=== PATIENT | female | born 1965 | race Hispanic/Latino ===

== ENCOUNTER → 2019-09-11 | Outpatient (CLI) | payer BC | END | disposition home or self-care (01) | LOC: RAH 09:21 | PROVIDERS: ATTEND Obstetrics & Gynecology | DX: Z12.31 Encounter for screening mammogram for malignant neoplasm of breast (principal) | CPT/HCPCS: 77067 ==

== ENCOUNTER 2020-12-17 13:42 | Emergency (ER) | payer BC, OTHER ==
[2020-12-17] MEDS ORDERED: CYCLOBENZAPRINE HCL 10 MG TABLET ONE (14:29)
[2020-12-17] MEDS ORDERED: HYDROCODONE/ACETAMINOPHEN 10/325 MG TAB ONE (14:29)
== END 2020-12-17 15:15 | disposition home or self-care (01) ==
LOC: EDH 13:42
DX: S13.4XXA Sprain of ligaments of cervical spine, initial encounter (principal); S00.03XA Contusion of scalp, initial encounter; W20.8XXA Other cause of strike by thrown, projected or falling object, initial encounter; Y93.89 Activity, other specified; Y92.89 Other specified places as the place of occurrence of the external cause; Y99.8 Other external cause status
CPT/HCPCS: 70450; 72125

== ENCOUNTER 2021-01-17 06:07 | Day surgery (SDC) | payer BC, OTHER ==
[2021-01-16 09:05] VITALS: BP 132/70
[2021-01-17] VITALS (11 sets, daily range): BP systolic 114–144; BP diastolic 57–75
[~2021-01-17] VITALS: Ht 157.5 cm; Wt 112.6 kg
[~2021-01-17 06:07] MED LIST: FOLI-103 PO; NAPR-1023 PO; TIZA-194 PO
[2021-01-17] MEDS ORDERED: LACTATED RINGERS 1000ML 1,000 ML IV ONE (06:13)
[2021-01-17] MEDS ORDERED: CEFAZOLIN SODIUM 1 GM VIAL ONE (06:13)
[2021-01-17] MEDS ORDERED: MIDAZOLAM HCL 1 MG/ML 2ML VIAL ONE (06:35)
[2021-01-17] MEDS ORDERED: FENTANYL CITRATE PF 50 MCG/1 ML 2ML VIAL ONE ×2 (06:36→07:45)
[2021-01-17] MEDS ORDERED: LIDOCAINE HCL-MPF 0.5% 50ML VIAL IJ ONE (06:38)
[2021-01-17] MEDS: CEFAZOLIN SODIUM 1 GM VIAL IVP ONE ×2 (07:45→08:23)
== END 2021-01-17 09:20 | disposition home or self-care (01) ==
LOC: DAH 06:07
PROVIDERS: ATTEND Neurological Surgery
DX: G56.01 Carpal tunnel syndrome, right upper limb (principal); Z20.822 Contact with and (suspected) exposure to COVID-19; E66.9 Obesity, unspecified; Z79.899 Other long term (current) drug therapy
CPT/HCPCS: 64721; 87635; A4215; A4216; A4221; A4222; A4223 ×2; A4663; A6260; C9803; J0690; J2250; J3010 ×2; J3490; J7120

== ENCOUNTER → 2021-04-07 | Outpatient (CLI) | payer BC | END | disposition home or self-care (01) | LOC: RAH 11:13 | PROVIDERS: ATTEND Internal Medicine | DX: Z12.31 Encounter for screening mammogram for malignant neoplasm of breast (principal) | CPT/HCPCS: 77067 ==

== ENCOUNTER → 2022-10-24 | Outpatient (CLI) | payer BC | END | disposition home or self-care (01) | LOC: RAH 10:44 | PROVIDERS: ATTEND Obstetrics & Gynecology | DX: Z12.31 Encounter for screening mammogram for malignant neoplasm of breast (principal); N64.89 Other specified disorders of breast | CPT/HCPCS: 77067 ==

== ENCOUNTER 2023-03-23 01:42 | Emergency (ER) | payer BC ==
[~2023-03-23] VITALS: Ht 165.1 cm; Wt 114.3 kg
[2023-03-23 01:44] VITALS: BP 147/76; PULSE 73; RESP 16
[2023-03-23] MEDS ORDERED: HYDROCODONE/ACETAMINOPHEN 5/325 MG TAB PO ONE (02:30)
== END 2023-03-23 03:09 | disposition home or self-care (01) ==
LOC: EDH 01:42
DX: S52.592A Other fractures of lower end of left radius, initial encounter for closed fracture (principal); E78.00 Pure hypercholesterolemia, unspecified; Z90.89 Acquired absence of other organs; Z79.899 Other long term (current) drug therapy; Z98.890 Other specified postprocedural states; W18.39XA Other fall on same level, initial encounter; Y93.89 Activity, other specified; Y92.89 Other specified places as the place of occurrence of the external cause; Y99.8 Other external cause status
CPT/HCPCS: 29125; 73110; 73130

== ENCOUNTER 2024-08-20 08:21 | Inpatient (IN) | payer BC ==
[2024-08-14 15:11] LABS: BASOPHILS # (AUTO) 0.05 K/uL (0.00-0.20); BASOPHILS % (AUTO) 0.5 % (0.0-5.0); EOSINOPHILS # (AUTO) 0.04 K/uL (0.00-0.70); EOSINOPHILS % (AUTO) 0.4 % (0.0-8.0); IMMATURE GRANULOCYTE ABSOLUTE 0.03 K/uL (0-1); LYMPHOCYTES # (AUTO) 2.2 K/uL (1.0-4.8); MEAN CORPUSCULAR HEMOGLOBIN 30.1 pg (27.0-33.0); MEAN CORPUSCULAR HGB CONC 32.9 g/dL (32.0-36.0); MEAN CORPUSCULAR VOLUME 91.7 fL (79-99); MONOCYTES # (AUTO) 0.7 K/uL (0.1-1.0); MONOCYTES % (AUTO) 6.7 % (3.0-13.0); NEUTROPHILS # (AUTO) 7.6 K/uL (1.8-7.7); NEUTROPHILS % (AUTO) 71.1 % (40.0-77.0); PLATELET COUNT (AUTO) 346 K/uL (130-400); RED BLOOD CELL COUNT(AUTO) 4.58 MIL/uL (4.00-5.50); RED CELL DISTRIBUTION WIDTH 13.3 % (11.0-15.5); WHITE BLOOD COUNT (AUTO) 10.7 K/uL (4.8-10.8)
[2024-08-14 15:31] LABS: APPEARANCE,URINE CLEAR (CLEAR); BILIRUBIN,URINE NEGATIVE (NEGATIVE); COLOR,URINE LIGHT-YELLOW (YELLOW); GLUCOSE, URINE (UA) NEGATIVE (NEGATIVE); KETONES,URINE NEGATIVE (NEGATIVE); LEUKOCYTE ESTERASE ,URINE 25 Leu/uL (NEGATIVE); NITRATE,URINE NEGATIVE (NEGATIVE); OCCULT BLOOD,URINE NEGATIVE (NEGATIVE); PH,URINE 5.5 (5.0-8.0); PROTEIN,URINE 10 mg/dL (NEGATIVE); UROBILINOGEN,URINE 0.2 mg/dL (0.2-1.0)
[2024-08-14 15:33] VITALS: BP 139/75; PULSE 75; RESP 16; TEMP 97.5
[2024-08-14 15:35] LABS: ADD UA MICROSCOPIC YES
[2024-08-14 15:42] LABS: MUCUS,URINE RARE LPF (None Seen); SQUAMOUS EPITHELIAL CELL,UR RARE /HPF (0-2)
[~2024-08-20] VITALS: Ht 160 cm; Wt 121.4 kg
[2024-08-20] VITALS (25 sets, daily range): BP systolic 121–156; BP diastolic 49–82; PULSE 65–78; RESP 15–19; TEMP 97.2–98.1; O2SAT 96–98
[~2024-08-20 08:21] MED LIST changes: +ATOR40TA71 PO; -FOLI-103 PO; +IBUP-2077 PO; -NAPR-1023 PO; +[UNRECOGNIZED DRUG - MIXTURE] PO
[2024-08-20] MEDS: ceFAZolin SODIUM 2 GM VIAL ONE (09:53)
[2024-08-20] MEDS: LACTATED RINGERS 1000ML 1,000 ML IV ONE (09:53)
[2024-08-20] MEDS: VANCOMYCIN 500MG VIAL IJ SCH (12:00)
[2024-08-20] MEDS ORDERED: MIDAZOLAM HCL 1 MG/ML 2ML VIAL ONE (12:04)
[2024-08-20] MEDS ORDERED: VANCOMYCIN 1G/250ML KIT 250 ML IV ONE (12:13)
[2024-08-20] MEDS ORDERED: ceFAZolin SODIUM 1 GM VIAL ONE ×2 (12:14)
[2024-08-20] MEDS ORDERED: LIDOCAINE HCL-MPF 2% 10ML AMP IJ ONE (12:18)
[2024-08-20] MEDS ORDERED: FENTanyl CITRate PF 50 MCG/1 ML 2ML VIAL ONE (12:18)
[2024-08-20] MEDS ORDERED: rocuRONium bROMide 10MG/1ML 5ML VL ONE ×2 (12:18→13:30)
[2024-08-20] MEDS ORDERED: proPOFol 10 MG/ML 20ML VIAL IV ONE (12:18)
[2024-08-20] MEDS ORDERED: SUCCINYLCHOLINE CHLORIDE 20 MG/ML 10 ML VIAL ONE (12:18)
[2024-08-20] MEDS: ceFAZolin SODIUM 2 GM VIAL IVPB ONE (12:33)
[2024-08-20] MEDS: TRANEXAMIC ACID 1000MG/10ML IV ONE (13:00)
--- NOTE | 2024-08-20 14:55 | OP ---
Operative Note: DATE OF PROCEDURE: 08/20/24 SURGEON: ESTEPHANIE TRIVEDI MD ADMISSIONS RECRUITER: [Rafita Lynch CFA] ANESTHESIA: [General anesthesia] ANESTHESIOLOGIST/ORACLE SOA DEVELOPER: [Levon Nguyen CRNA] PREOPERATIVE DIAGNOSIS: [Right knee osteoarthritis] POSTOPERATIVE DIAGNOSIS: [Right knee osteoarthritis] IMPLANTS: [BIOMET VANGUARD. Femur size 62.5 right PS. Tibia size 71 fixed cruciate. Tibial liner size 71/75 x 14 PS. Patella size 31 x 8 asymmetric] PROCEDURE: [Right total knee arthroplasty] ESTIMATED BLOOD LOSS: [200 mL] INDICATIONS: [The patient is a 59-year-old female with history of pain to the right knee that has not responded to conservative treatment the patient is being admitted for a right total knee arthroplasty. Patient of the risks of the procedure, risks, benefits possible complications and agreed to sign the consent form] DESCRIPTION OF PROCEDURE: [After adequate general anesthesia was achieved and regional block obtained the right lower extremity was prepped and draped in the usual manner previous placement of the tourniquet in the proximal thigh. The extremity was then elevated and exsanguinated with an Esmarch bandage and the tourniquet inflated to 250 mmHg the Esmarch band been then removed. With the knee in flexion a longitudinal incision was then made in the anterior aspect through the skin followed by dissection of the subcutaneous tissue. A bone infusion needle was then inserted just medial to the tibial tuberosity anterior this bone we proceeded to infiltrate in the proximal tibia 50 mL of normal saline mixed with 500 mg of vancomycin. The needle was removed. A paramedian approach was then made with the Bovie cautery cutting through the quadriceps tendon, medial patellar retinaculum and patellar tendon retinaculum. The retropatellar tendon fat was then excised and the soft tissue elements of the tibia were elevated subperiosteally and retractors were applied medially and laterally . The anterior and posterior cruciate ligaments were resected. With the use of a drill a starting hole was made in the distal femur entering the intramedullary canal and then after removal of the drill an intramedullary guide was inserted with a 5 degree valgus block that touched the distal femur and to this the distal femoral cutting guide was then applied anteriorly and was secured to the distal femur with the use of pins. The intramedullary guide was then removed and with the use of the oscillating saw we proceeded to resect the distal femur removing the fragments and the guide. The femoral sizer was then applied distally and drill holes were made removing the sizer and the 4-in-1 cutting block was then inserted and the anterior, posterior and chamfer cuts were made removing the fragments and the block. The posterior cruciate ligament retractor was then inserted posterior to the tibia and this was brought forward proceeding then to apply the external tibial alignment guide and secured the proximal cutting guide to the tibia with the use of pins. With the use of the oscillating saw the proximal cut to the tibia tibia was made. The bone fragment was removed and the trial tibia plate was chosen. At this point the menisci were removed sharply and with the use of the curved osteotome the posterior osteophytes of the femur were removed. The PS cutting guide was then inserted and the intercondylar cut was made removing the fragment and the guide. The tri al components were then inserted at the femur and tibia with a trial tibial liner bringing the knee into extension noticing that the patient had a very stable knee in flexion, extension and with valgus and varus stress. The knee was maintained in extension and the patella was then addressed proceeding to measure its thickness and then with the use of the oscillating saw we removed 8 mm from the articular surface and restored the height with application of a trial component after 3 peg holes were made. 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 A lateral release was then performed normalized in the tracking back to normal. The components were then removed while the cement was prepared and while it was mixed on the back table we proceeded to irrigate the joint with antibiotic solution and then cover the entry to the femoral canal with a bone plug. Once the cement was ready we proceeded to apply it first to the tibia surface inserting the final component and then to the femoral surface and inserted the final component removing the excess cement and then applying a trial liner bringing the knee into extension for compression. Then we proceeded to irrigate the patella surface and dried it applying then bone cement and the final patellar component was inserted and was secured with application of a clamp. The joint was irrigated with a warm diluted Betadine solution while the cement dried followed by irrigation with antibiotic solution. The trial liner was removed as well as the patellar clamp and we proceeded then to irrigate the posterior aspect of the joint to remove all the remaining debris and the final tibial liner was inserted and locked against the tibia . The range of motion was checked and noticed to be adequate with full extension and flexion, no laxity in valgus or varus stress and with adequate patellofemoral tracking. The patient had no anterior or posterior drawer. After further irrigation the wound was then closed with approximation of the quadriceps tendon, patellar retinaculum and patellar tendon retinaculum with #1 Vicryl close stitches alternating with #1 Ethibond stitches. The tourniquet was then deflated and this was followed by hemostasis and closure of the subcutaneous tissue with 2-0 Monocryl inverted stitches and the skin was closed with 3-0 Monocryl subcuticularly. The wound was covered with a suction dressing followed by application of an Orestes bandage for compression and the drapes were then removed transferring the patient to the hospital bed and taken to recovery room for follow-up by anesthesia. There were no complications during the procedure.] ESTEPHANIE TRIVEDI MD Aug 20, 2024 14:55
[2024-08-20] MEDS ORDERED: FERROUS FUMARATE 324 MG TABLET PO PRN (15:00)
[2024-08-20] MEDS ORDERED: traMADol HCL 50 MG TABLET PO PRN (15:00)
[2024-08-20] MEDS ORDERED: CALCIUM CARB 500MG PO PRN (15:00)
[2024-08-20] MEDS ORDERED: PoTASSium chloRIDE 20MEQ/100ML 100 ML IV PRN (15:00)
[2024-08-20] MEDS ORDERED: TEMAZepam 15 MG CAPSULE PO PRN (15:00)
[2024-08-20] MEDS ORDERED: PoTASSium chl 10% ELIXIR 20MEQ 20 MEQ/15 ML UDCUP PO PRN (15:00)
[2024-08-20] MEDS ORDERED: DiphenhydrAMINE HCL 50 MG/ML VIAL IVP PRN (15:00)
[2024-08-20] MEDS ORDERED: PoTASSium chloRIDE 20MEQ ER 20 MEQ ERTAB PO PRN (15:00)
[2024-08-20] MEDS ORDERED: TRANEXAMIC ACID 1000MG/10ML ONE (15:31)
[2024-08-20] MEDS: TRANEXAMIC ACID 1000MG/10ML ONE (15:42)
[2024-08-20] MEDS: MEPERIDINE-PF 25 MG/ML SYG ONE (15:47)
[2024-08-20] MEDS: ondanSETRON 4MG INJ ONE (16:07)
--- NOTE | 2024-08-20 16:40 | NUR ---
RECEIVED PATIENT FROM PACU. NO REPORT GIVEN. PATIENT IS ALERT, ORIENTED IN PERSON, TIME AND PLACE. NO SIGNS O RESPIRATORY DISTRESS. BOWEL SOUNDS PRESENT IN ALL FOUR ABDOMINAL QUADRANTS. ABDOMEN SOFT, NON TENDER. LUNGS CLEAR. PATIENT HAS EMORY DRESSING ON HER RIGHT KNEE. DRESSING CLEAN AND DRY. DORSALIS PEDIS PULSES PRESENT ON BOTH FEET AND STRONG. PIV ON LEFT ANTECUBITAL 20G. HAS 0.9NSS @ 100 ML/HR. PLACED SCDs. post vital signs started.
[2024-08-20] MEDS: 0.9%NACL 1000ML 1,000 ML IV SCH (17:27)
[2024-08-20] MEDS: ketOROlac 15MG/ML VIAL (15MG/ML) IV PRN (17:39)
[2024-08-20] MEDS: ondanSETRON 4MG INJ IVP PRN (17:40)
--- NOTE | 2024-08-20 18:13 | NUR ---
PT eval completed. Pt able to sit EOB and complete sit to stands. Pt requests to walk to RR. Pt able to advance RLE but not step or ambulate due to multiple episodes of buckling, increased dizziness and n/v. Pt education completed to include use of ice, calling for pain meds, pain scale, POC, DC planning, calling for help, fall precautions, use of bed and call light. Questions answered. Pt back to bed with SCDs, ice, call centeno and fall alarm in place. Nurse bringing nausea meds and pain meds. Bed side commode available. Pts tray arrived.
[2024-08-20] MEDS: ceFAZolin SODIUM 1 GM VIAL IVP SCH (20:22)
[2024-08-20] MEDS: ASPIRIN 81 MG EC TAB PO SCH (20:22)
[2024-08-20] MEDS: CeleCOXib 200 MG CAP PO SCH (20:22)
[2024-08-21 03:50] VITALS: BP 106/49; PULSE 77; RESP 17; TEMP 98.5
[2024-08-21 05:53] LABS: HEMATOCRIT 32.3 % (36-48); MEAN CORPUSCULAR HEMOGLOBIN 30.1 pg (27.0-33.0); MEAN CORPUSCULAR HGB CONC 31.9 g/dL (32.0-36.0); MEAN CORPUSCULAR VOLUME 94.4 fL (79-99); RED BLOOD CELL COUNT(AUTO) 3.42 MIL/uL (4.00-5.50); RED CELL DISTRIBUTION WIDTH 13.8 % (11.0-15.5); WHITE BLOOD COUNT (AUTO) 9.2 K/uL (4.8-10.8)
[2024-08-21 06:03] LABS: CREATININE 0.9 mg/dL (0.5-1.0)
[2024-08-21 08:00] VITALS: BP 118/55; PULSE 82; RESP 18; TEMP 99.4
[2024-08-21] MEDS: polyETHYLene GLYCol 3350 17 GM POWD.PACK PO SCH (09:10)
[2024-08-21] MEDS: HYDROcodone/APAP 5/325 1 TAB TABLET PO PRN (09:26)
--- NOTE | 2024-08-21 10:47 | PN ---
Ortho postop day one. This morning patient is still in bed sleeping but she is easily aroused. She is alert and oriented. Reporting adequate pain control. Vital signs have been stable she has been afebrile. Voiding on her own without difficulty. Laboratory results reviewed. Noted to have a drop in hemoglobin and hematocrit as expected after total knee arthroplasty. Patient currently is asymptomatic. We will continue to observe and address per protocol as necessary. The Orestes bandage is removed from the extremity and the PICCO dressing shows bloody breakthrough distally. The gastrocnemius a soft nontender. Distal neurovascular exam is normal. Operative findings discussed with the patient. Patient unable to ambulate within the confines of her room yesterday but did tolerate dangle and is pending further physical therapy this morning. Instructed on incentive spirometry. She can ice throughout the day as needed. Anticipated discharge goal is home health/PT Assessment: Status post right total knee arthroplasty. Asymptomatic acute postoperative blood loss anemia. Plan: Continue with Dr. Goode TKA protocol and discharge planning. Asymptomatic acute postoperative blood loss anemia addressed per protocol as necessary. Vitals/Labs Vital Signs Date Time Temp Pulse Resp B/P (MAP) Pulse Ox O2 Delivery O2 Flow Rate FiO2 08/21/24 08:00 99.3 82 18 118/55 98 Nasal Cannula 2.0 08/20/24 20:00 21 Laboratory Tests 08/21/24 05:14 Medications Current Medications Cefazolin Sodium 2 gm STK-MED ONCE .ROUTE; Start 08/20/24 at 08:54; Stop 08/20/24 at 08:55; Status DC Lactated Ringer's 1,000 ml @ As Directed STK-MED ONCE IV Last administered on 08/20/24at 09:53; Start 08/20/24 at 08:54; Stop 08/20/24 at 08:55; Status DC Vancomycin HCl 500 mg ONCALL IJ; Start 08/20/24 at 12:00; Stop 08/20/24 at 16:00; Status DC Midazolam HCl 2 mg STK-MED ONCE .ROUTE; Start 08/20/24 at 12:04; Stop 08/20/24 at 12:04; Status DC Vancomycin HCl 250 ml @ As Directed STK-MED ONCE IV; Start 08/20/24 at 12:13; Stop 08/20/24 at 12:14; Status DC Cefazolin Sodium 1 gm STK-MED ONCE .ROUTE; Start 08/20/24 at 12:14; Stop 08/20/24 at 12:14; Status DC Cefazolin Sodium 1 gm STK-MED ONCE .ROUTE; Start 08/20/24 at 12:14; Stop 08/20/24 at 12:15; Status DC Lidocaine HCl 1 ml STK-MED ONCE IJ; Start 08/20/24 at 12:18; Stop 08/20/24 at 12:18; Status DC Succinylcholine Chloride 200 mg STK-MED ONCE .ROUTE; Start 08/20/24 at 12:18; Stop 08/20/24 at 12:18; Status DC Propofol 200 mg STK-MED ONCE IV; Start 08/20/24 at 12:18; Stop 08/20/24 at 12:18; Status DC Rocuronium [place] 50 mg STK-MED ONCE .ROUTE; Start 08/20/24 at 12:18; Stop 08/20/24 at 12:18; Status DC Fentanyl Citrate 100 mcg STK-MED ONCE .ROUTE; Start 08/20/24 at 12:18; Stop 08/20/24 at 12:19; Status DC Cefazolin Sodium 2 gm STK-MED ONCE IVPB Last administered on 08/20/24at 12:33; Start 08/20/24 at 12:33; Stop 08/20/24 at 13:22; Status DC Cefazolin Sodium 3 gm STK-MED ONCE IVPB Last administered on 08/20/24at 12:29; Start 08/20/24 at 12:29; Stop 08/20/24 at 13:22; Status DC Rocuronium [place] 50 mg STK-MED ONCE .ROUTE; Start 08/20/24 at 13:30; Stop 08/20/24 at 13:30; Status DC Sodium Chloride 1,000 ml @ 100 mls/hr Q10H IV Last administered on 08/21/24at 10:27; Start 08/20/24 at 15:00; Stop 08/21/24 at 14:59 Polyethylene Glycol 17 gm DAILY PO Last administered on 08/21/24at 09:10; Start 08/21/24 at 09:00; Stop 09/20/24 at 08:59 Bisacodyl 10 mg DAILY PRN RC; Start 08/23/24 at 15:00; Stop 09/22/24 at 14:59 Ketorolac Tromethamine 15 mg Q6H PRN IV Last administered on 08/21/24at 09:26; Start 08/20/24 at 15:00; Stop 08/25/24 at 14:59 Ferrous Fumarate 324 mg DAILY PRN PO; Start 08/20/24 at 15:00; Stop 09/19/24 at 14:59 Temazepam 15 mg HS PRN PO; Start 08/20/24 at 15:00; Stop 09/19/24 at 14:59 Ondansetron HCl 4 mg Q6H PRN IVP Last administered on 08/20/24at 17:40; Start 08/20/24 at 15:00; Stop 09/19/24 at 14:59 Calcium Carbonate 500 mg Q12H PRN PO; Start 08/20/24 at 15:00; Stop 09/19/24 at 14:59 Diphenhydramine HCl 25 mg Q6H PRN IVP; Start 08/20/24 at 15:00; Stop 09/19/24 at 14:59 Cefazolin Sodium 2 gm Q8H IVP Last administered on 08/21/24at 04:33; Start 08/20/24 at 20:00; Stop 08/21/24 at 04:01; Status DC Potassium Chloride 100 ml @ 100 mls/hr AD PRN IV; Start 08/20/24 at 15:00; Stop 09/19/24 at 14:59 Potassium Chloride 20 meq AD PRN PO; Start 08/20/24 at 15:00; Stop 09/19/24 at 14:59 Potassium Chloride 20 meq AD PRN PO; Start 08/20/24 at 15:00; Stop 09/19/24 at 14:59 Celecoxib 200 mg BID PO Last administered on 08/21/24at 09:10; Start 08/20/24 at 21:00; Stop 09/19/24 at 20:59 Tramadol HCl 50 mg Q6H PRN PO; Start 08/20/24 at 15:00; Stop 08/25/24 at 14:59 Acetaminophen/ Hydrocodone Bitart Q4H PRN PO Last administered on 08/21/24at 09:26; Start 08/20/24 at 15:00; Stop 08/25/24 at 14:59 Aspirin 81 mg BID PO Last administered on 08/21/24at 09:10; Start 08/20/24 at 21:00; Stop 09/19/24 at 20:59 Tranexamic Acid 1,000 mg STK-MED ONCE .ROUTE; Start 08/20/24 at 15:31; Stop 08/20/24 at 15:31; Status DC Tranexamic Acid 1,000 mg STK-MED ONCE .ROUTE Last administered on 08/20/24at 15:42; Start 08/20/24 at 15:31; Stop 08/20/24 at 15:31; Status DC Tranexamic Acid 1,000 mg STK-MED ONCE IV Last administered on 08/20/24at 13:00; Start 08/20/24 at 13:00; Stop 08/20/24 at 15:41; Status DC Meperidine HCl 25 mg STK-MED ONCE .ROUTE Last administered on 08/20/24at 15:47; Start 08/20/24 at 15:43; Stop 08/20/24 at 15:44; Status DC Ondansetron HCl 4 mg STK-MED ONCE .ROUTE Last administered on 08/20/24at 16:07; Start 08/20/24 at 16:01; Stop 08/20/24 at 16:03; Status DC RICARDO BEEBE NP Aug 21, 2024 10:47
--- NOTE | 2024-08-21 11:00 | NUR ---
DCP CM MET WITH PT ASSESSMENT DONE, PT IS INDEPENDENT PRIOR TO SURGERY, LIVES AT HOME WITH HER LIFE PARTNER. PT HAS A WALKER. DENIES ANY OTHER EQUIPMENT/SERVICES. FEELS SAFE TO GO BACK HOME, STILL DRIVE AND WORK, PARTNER ABLE TO ASSIST WITH TRANSPORTATION AND NEEDS NECESSARY. DISCUSSED MD RECOMMENDATIONS FOR HOME W/HH, PT REQUESTING SHORT TERM REHAB INSTEAD, CONSENT SIGNED MONICA FOR [facility]. DCP SNF ONCE APPROVED. CM SENT ORDER, CLINICALS, PT, PASRR TO [facility], AND [facility] VIA SECURE EMAIL. CM SPOKE TO BHAVIN, WILL COME EVALUATE PT, AWARE DCP ONCE APPROVED VIA [facility]. PT PENDING APPROVAL AND ACCEPTANCE. PRIMARY NURSE JAMIL AWARE. DR TRIVEDI UPDATED. CM TO CONTINUE TO FOLLOW UP.
[2024-08-21 12:00] VITALS: BP 121/59; PULSE 79; RESP 20; TEMP 98.3
[2024-08-21 16:00] VITALS: BP 113/59; PULSE 79; RESP 20; TEMP 99.4
[2024-08-21 20:00] VITALS: BP 115/54; PULSE 85; RESP 18; TEMP 97.6; O2SAT 97
[2024-08-22] VITALS: BP 112/53; PULSE 89; RESP 16; TEMP 97.9
[2024-08-22 04:00] VITALS: BP 128/66; PULSE 84; RESP 20; TEMP 101
[2024-08-22 06:38] LABS: BASOPHILS # (AUTO) 0.03 K/uL (0.00-0.20); BASOPHILS % (AUTO) 0.3 % (0.0-5.0); EOSINOPHILS # (AUTO) 0.08 K/uL (0.00-0.70); EOSINOPHILS % (AUTO) 0.8 % (0.0-8.0); HEMATOCRIT 31.7 % (36-48); IMMATURE GRANULOCYTE ABSOLUTE 0.05 K/uL (0-1); LYMPHOCYTES # (AUTO) 1.3 K/uL (1.0-4.8); MEAN CORPUSCULAR HEMOGLOBIN 30.3 pg (27.0-33.0); MEAN CORPUSCULAR HGB CONC 32.2 g/dL (32.0-36.0); MEAN CORPUSCULAR VOLUME 94.1 fL (79-99); MONOCYTES # (AUTO) 1.2 K/uL (0.1-1.0); MONOCYTES % (AUTO) 11.8 % (3.0-13.0); NEUTROPHILS # (AUTO) 7.9 K/uL (1.8-7.7); NEUTROPHILS % (AUTO) 74.6 % (40.0-77.0); PLATELET COUNT (AUTO) 216 K/uL (130-400); RED BLOOD CELL COUNT(AUTO) 3.37 MIL/uL (4.00-5.50); RED CELL DISTRIBUTION WIDTH 13.6 % (11.0-15.5); WHITE BLOOD COUNT (AUTO) 10.5 K/uL (4.8-10.8)
[2024-08-22 08:00] VITALS: BP 137/73; PULSE 83; RESP 18; TEMP 98.7
[2024-08-22 12:00] VITALS: BP 124/60; PULSE 79; RESP 20; TEMP 98.3
[2024-08-22 14:37] VITALS: O2SAT 97
--- NOTE | 2024-08-22 19:15 | PN ---
Postop day 2. Status post right total knee arthroplasty. Vital signs stable. The patient had an episode of fever this morning that has resolved. The CBC done revealed no abnormalities with a normal differential. The patient reports doing much better with physical therapy being able to ambulate without much pain. Still pending acceptance to a nursing rehab. Awake, alert and oriented x3. Normal respiratory effort. The right lower extremity dressing is unchanged with a mild stain a dry blood in the distal aspect. Dressing functioning adequately. Distal neurovascular exam normal. Assessment: Status post right total knee arthroplasty. Plan: Continue with physical therapy and rehabilitation. Pending approval to be transferred to nursing rehab. Vitals/Labs Vital Signs Date Time Temp Pulse Resp B/P (MAP) Pulse Ox O2 Delivery O2 Flow Rate FiO2 08/22/24 14:37 97 Room Air* 0 21 08/22/24 12:00 98.2 79 20 124/60 Laboratory Tests 08/22/24 06:31 Medications Current Medications Cefazolin Sodium 2 gm STK-MED ONCE .ROUTE; Start 08/20/24 at 08:54; Stop 08/20/24 at 08:55; Status DC Lactated Ringer's 1,000 ml @ As Directed STK-MED ONCE IV Last administered on 08/20/24at 09:53; Start 08/20/24 at 08:54; Stop 08/20/24 at 08:55; Status DC Vancomycin HCl 500 mg ONCALL IJ; Start 08/20/24 at 12:00; Stop 08/20/24 at 16:00; Status DC Midazolam HCl 2 mg STK-MED ONCE .ROUTE; Start 08/20/24 at 12:04; Stop 08/20/24 at 12:04; Status DC Vancomycin HCl 250 ml @ As Directed STK-MED ONCE IV; Start 08/20/24 at 12:13; Stop 08/20/24 at 12:14; Status DC Cefazolin Sodium 1 gm STK-MED ONCE .ROUTE; Start 08/20/24 at 12:14; Stop 08/20/24 at 12:14; Status DC Cefazolin Sodium 1 gm STK-MED ONCE .ROUTE; Start 08/20/24 at 12:14; Stop 08/20/24 at 12:15; Status DC Lidocaine HCl 1 ml STK-MED ONCE IJ; Start 08/20/24 at 12:18; Stop 08/20/24 at 12:18; Status DC Succinylcholine Chloride 200 mg STK-MED ONCE .ROUTE; Start 08/20/24 at 12:18; Stop 08/20/24 at 12:18; Status DC Propofol 200 mg STK-MED ONCE IV; Start 08/20/24 at 12:18; Stop 08/20/24 at 12:18; Status DC Rocuronium [place] 50 mg STK-MED ONCE .ROUTE; Start 08/20/24 at 12:18; Stop 08/20/24 at 12:18; Status DC Fentanyl Citrate 100 mcg STK-MED ONCE .ROUTE; Start 08/20/24 at 12:18; Stop 08/20/24 at 12:19; Status DC Cefazolin Sodium 2 gm STK-MED ONCE IVPB Last administered on 08/20/24at 12:33; Start 08/20/24 at 12:33; Stop 08/20/24 at 13:22; Status DC Cefazolin Sodium 3 gm STK-MED ONCE IVPB Last administered on 08/20/24at 12:29; Start 08/20/24 at 12:29; Stop 08/20/24 at 13:22; Status DC Rocuronium [place] 50 mg STK-MED ONCE .ROUTE; Start 08/20/24 at 13:30; Stop 08/20/24 at 13:30; Status DC Sodium Chloride 1,000 ml @ 100 mls/hr Q10H IV Last administered on 08/21/24at 10:27; Start 08/20/24 at 15:00; Stop 08/21/24 at 14:59; Status DC Polyethylene Glycol 17 gm DAILY PO Last administered on 08/22/24at 08:40; Start 08/21/24 at 09:00; Stop 09/20/24 at 08:59 Bisacodyl 10 mg DAILY PRN RC; Start 08/23/24 at 15:00; Stop 09/22/24 at 14:59 Ketorolac Tromethamine 15 mg Q6H PRN IV Last administered on 08/21/24at 09:26; Start 08/20/24 at 15:00; Stop 08/25/24 at 14:59 Ferrous Fumarate 324 mg DAILY PRN PO; Start 08/20/24 at 15:00; Stop 09/19/24 at 14:59 Temazepam 15 mg HS PRN PO; Start 08/20/24 at 15:00; Stop 09/19/24 at 14:59 Ondansetron HCl 4 mg Q6H PRN IVP Last administered on 08/20/24at 17:40; Start 08/20/24 at 15:00; Stop 09/19/24 at 14:59 Calcium Carbonate 500 mg Q12H PRN PO; Start 08/20/24 at 15:00; Stop 09/19/24 at 14:59 Diphenhydramine HCl 25 mg Q6H PRN IVP; Start 08/20/24 at 15:00; Stop 09/19/24 at 14:59 Cefazolin Sodium 2 gm Q8H IVP Last administered on 08/21/24at 04:33; Start 08/20/24 at 20:00; Stop 08/21/24 at 04:01; Status DC Potassium Chloride 100 ml @ 100 mls/hr AD PRN IV; Start 08/20/24 at 15:00; Stop 09/19/24 at 14:59 Potassium Chloride 20 meq AD PRN PO; Start 08/20/24 at 15:00; Stop 09/19/24 at 14:59 Potassium Chloride 20 meq AD PRN PO; Start 08/20/24 at 15:00; Stop 09/19/24 at 14:59 Celecoxib 200 mg BID PO Last administered on 08/22/24at 08:40; Start 08/20/24 at 21:00; Stop 09/19/24 at 20:59 Tramadol HCl 50 mg Q6H PRN PO; Start 08/20/24 at 15:00; Stop 08/25/24 at 14:59 Acetaminophen/ Hydrocodone Bitart Q4H PRN PO Last administered on 08/22/24at 15:42; Start 08/20/24 at 15:00; Stop 08/25/24 at 14:59 Aspirin 81 mg BID PO Last administered on 08/22/24at 08:40; Start 08/20/24 at 21:00; Stop 09/19/24 at 20:59 Tranexamic Acid 1,000 mg STK-MED ONCE .ROUTE; Start 08/20/24 at 15:31; Stop 08/20/24 at 15:31; Status DC Tranexamic Acid 1,000 mg STK-MED ONCE .ROUTE Last administered on 08/20/24at 15:42; Start 08/20/24 at 15:31; Stop 08/20/24 at 15:31; Status DC Tranexamic Acid 1,000 mg STK-MED ONCE IV Last administered on 08/20/24at 13:00; Start 08/20/24 at 13:00; Stop 08/20/24 at 15:41; Status DC Meperidine HCl 25 mg STK-MED ONCE .ROUTE Last administered on 08/20/24at 15:47; Start 08/20/24 at 15:43; Stop 08/20/24 at 15:44; Status DC Ondansetron HCl 4 mg STK-MED ONCE .ROUTE Last administered on 08/20/24at 16:07; Start 08/20/24 at 16:01; Stop 08/20/24 at 16:03; Status DC ESTEPHANIE TRIVEDI MD Aug 22, 2024 19:15
[2024-08-22 20:00] VITALS: BP 142/72; PULSE 83; RESP 16; TEMP 98.8; O2SAT 95
[2024-08-23] VITALS: BP 141/62; PULSE 79; RESP 16; TEMP 98.4
[2024-08-23 04:00] VITALS: BP 128/60; PULSE 67; RESP 16; TEMP 98.1
[2024-08-23 08:00] VITALS: BP 115/57; PULSE 78; RESP 20; TEMP 98.7; O2SAT 96
[2024-08-23 12:00] VITALS: BP 130/62; PULSE 83; RESP 20; TEMP 98.3
--- NOTE | 2024-08-23 14:52 | PN ---
Postop day 3. Status post right total knee arthroplasty. Vital signs stable, the patient is afebrile. Adequate pain control. Doing very well with physical therapy and rehabilitation. Dressing is changed today. The wound has some blistering around the gauze area but the incision looks well not actively bleeding healing adequately. Examination lower extremities reveals soft tissue edema and distal neurovascular exam is normal. Alvarado's sign is negative. Assessment: Status post right total knee arthroplasty. Plan: The patient will be staying another night, apparently there has not not been approval by the insurance for her to go to nursing rehab. Continue physical therapy and rehabilitation. Vitals/Labs Vital Signs Date Time Temp Pulse Resp B/P (MAP) Pulse Ox O2 Delivery O2 Flow Rate FiO2 08/23/24 12:00 98.2 83 20 130/62 98 Room Air 21 08/23/24 08:00 0 Medications Current Medications Cefazolin Sodium 2 gm STK-MED ONCE .ROUTE; Start 08/20/24 at 08:54; Stop 08/20/24 at 08:55; Status DC Lactated Ringer's 1,000 ml @ As Directed STK-MED ONCE IV Last administered on 08/20/24at 09:53; Start 08/20/24 at 08:54; Stop 08/20/24 at 08:55; Status DC Vancomycin HCl 500 mg ONCALL IJ; Start 08/20/24 at 12:00; Stop 08/20/24 at 16:00; Status DC Midazolam HCl 2 mg STK-MED ONCE .ROUTE; Start 08/20/24 at 12:04; Stop 08/20/24 at 12:04; Status DC Vancomycin HCl 250 ml @ As Directed STK-MED ONCE IV; Start 08/20/24 at 12:13; Stop 08/20/24 at 12:14; Status DC Cefazolin Sodium 1 gm STK-MED ONCE .ROUTE; Start 08/20/24 at 12:14; Stop 08/20/24 at 12:14; Status DC Cefazolin Sodium 1 gm STK-MED ONCE .ROUTE; Start 08/20/24 at 12:14; Stop 08/20/24 at 12:15; Status DC Lidocaine HCl 1 ml STK-MED ONCE IJ; Start 08/20/24 at 12:18; Stop 08/20/24 at 12:18; Status DC Succinylcholine Chloride 200 mg STK-MED ONCE .ROUTE; Start 08/20/24 at 12:18; Stop 08/20/24 at 12:18; Status DC Propofol 200 mg STK-MED ONCE IV; Start 08/20/24 at 12:18; Stop 08/20/24 at 12:18; Status DC Rocuronium [place] 50 mg STK-MED ONCE .ROUTE; Start 08/20/24 at 12:18; Stop 08/20/24 at 12:18; Status DC Fentanyl Citrate 100 mcg STK-MED ONCE .ROUTE; Start 08/20/24 at 12:18; Stop 08/20/24 at 12:19; Status DC Cefazolin Sodium 2 gm STK-MED ONCE IVPB Last administered on 08/20/24at 12:33; Start 08/20/24 at 12:33; Stop 08/20/24 at 13:22; Status DC Cefazolin Sodium 3 gm STK-MED ONCE IVPB Last administered on 08/20/24at 12:29; Start 08/20/24 at 12:29; Stop 08/20/24 at 13:22; Status DC Rocuronium [place] 50 mg STK-MED ONCE .ROUTE; Start 08/20/24 at 13:30; Stop 08/20/24 at 13:30; Status DC Sodium Chloride 1,000 ml @ 100 mls/hr Q10H IV Last administered on 08/21/24at 10:27; Start 08/20/24 at 15:00; Stop 08/21/24 at 14:59; Status DC Polyethylene Glycol 17 gm DAILY PO Last administered on 08/23/24at 08:43; Start 08/21/24 at 09:00; Stop 09/20/24 at 08:59 Bisacodyl 10 mg DAILY PRN RC; Start 08/23/24 at 15:00; Stop 09/22/24 at 14:59 Ketorolac Tromethamine 15 mg Q6H PRN IV Last administered on 08/21/24at 09:26; Start 08/20/24 at 15:00; Stop 08/25/24 at 14:59 Ferrous Fumarate 324 mg DAILY PRN PO; Start 08/20/24 at 15:00; Stop 09/19/24 at 14:59 Temazepam 15 mg HS PRN PO; Start 08/20/24 at 15:00; Stop 09/19/24 at 14:59 Ondansetron HCl 4 mg Q6H PRN IVP Last administered on 08/20/24at 17:40; Start 08/20/24 at 15:00; Stop 09/19/24 at 14:59 Calcium Carbonate 500 mg Q12H PRN PO; Start 08/20/24 at 15:00; Stop 09/19/24 at 14:59 Diphenhydramine HCl 25 mg Q6H PRN IVP; Start 08/20/24 at 15:00; Stop 09/19/24 at 14:59 Cefazolin Sodium 2 gm Q8H IVP Last administered on 08/21/24at 04:33; Start 08/20/24 at 20:00; Stop 08/21/24 at 04:01; Status DC Potassium Chloride 100 ml @ 100 mls/hr AD PRN IV; Start 08/20/24 at 15:00; Stop 09/19/24 at 14:59 Potassium Chloride 20 meq AD PRN PO; Start 08/20/24 at 15:00; Stop 09/19/24 at 14:59 Potassium Chloride 20 meq AD PRN PO; Start 08/20/24 at 15:00; Stop 09/19/24 at 14:59 Celecoxib 200 mg BID PO Last administered on 08/23/24at 08:43; Start 08/20/24 at 21:00; Stop 09/19/24 at 20:59 Tramadol HCl 50 mg Q6H PRN PO; Start 08/20/24 at 15:00; Stop 08/25/24 at 14:59 Acetaminophen/ Hydrocodone Bitart Q4H PRN PO Last administered on 08/23/24at 08:44; Start 08/20/24 at 15:00; Stop 08/25/24 at 14:59 Aspirin 81 mg BID PO Last administered on 08/23/24at 08:43; Start 08/20/24 at 21:00; Stop 09/19/24 at 20:59 Tranexamic Acid 1,000 mg STK-MED ONCE .ROUTE; Start 08/20/24 at 15:31; Stop 08/20/24 at 15:31; Status DC Tranexamic Acid 1,000 mg STK-MED ONCE .ROUTE Last administered on 08/20/24at 15:42; Start 08/20/24 at 15:31; Stop 08/20/24 at 15:31; Status DC Tranexamic Acid 1,000 mg STK-MED ONCE IV Last administered on 08/20/24at 13:00; Start 08/20/24 at 13:00; Stop 08/20/24 at 15:41; Status DC Meperidine HCl 25 mg STK-MED ONCE .ROUTE Last administered on 08/20/24at 15:47; Start 08/20/24 at 15:43; Stop 08/20/24 at 15:44; Status DC Ondansetron HCl 4 mg STK-MED ONCE .ROUTE Last administered on 08/20/24at 16:07; Start 08/20/24 at 16:01; Stop 08/20/24 at 16:03; Status DC ESTEPHANIE TRIVEDI MD Aug 23, 2024 14:52
[2024-08-23] MEDS ORDERED: BisaCODYL 10 MG SUPP.RECT RC PRN (15:00)
[2024-08-23] MEDS ORDERED: AEC81 PO (15:06)
[2024-08-23] MEDS ORDERED: HYDR-4060 PO (15:06)
--- NOTE | 2024-08-23 15:11 | DS ---
DISCHARGE SUMMARY [Date of admission: 08/20/2024 Date of discharge: Final diagnosis: Right Knee osteoarthritis Surgical procedures: Right total Knee arthroplasty on 08/20/2024 Summary of History and Physical: The patient is a 59 year-old female with history of severe arthrosis to the right knee that has been present for several years and has been treated conservatively with no longer adequate response to treatment. The patient is being admitted for total knee arthroplasty. Previous medical history: Obesity, hyperlipidemia. Previous surgical history: Left foot surgery, tonsillectomy Family history: Hypertension, diabetes mellitus, heart disease Social history: Negative for use of tobacco or alcohol. Allergies: NKDA. Review of system: Negative on admission Hospital course: The patient was admitted and taken to the operating room for a total knee arthroplasty, procedure that went uneventful. Postoperatively the patient remained hemodynamically stable and afebrile. The patient received antibiotic and anticoagulation prophylaxis as per protocol. The patient was evaluated by physical therapy and started rehabilitation treatment with ambulation with the use of walker, weightbearing as tolerated, range of motion exercises and bed transfers. The patient was also evaluated by case management and arrangements were made for discharge. The patient tolerated diet well. On postop day # all the arrangements were completed. The dressing was changed on postop day 3 and the wound was noted to be stable. the patient was dismissed on postop day number. Condition on discharge: Good Disposition: The patient will be dismissed to . Follow-up will be done at the office in 3 weeks. The patient is to continue with physical therapy and rehabilitation at and be ambulatory with the use of a walker, weightbearing as tolerated. Continue taking pain medication as instructed as well as anticoagulation prophylaxis. Continue with home medications also as instructed and continue with pre admission diet.] ESTEPHANIE TRIVEDI MD ] ESTEPHANIE TRIVEDI MD Aug 23, 2024 15:11
[2024-08-23 15:37] VITALS: BP 125/52; PULSE 85; RESP 20; TEMP 98.1
[2024-08-23 20:00] VITALS: BP 127/61; PULSE 81; RESP 16; TEMP 99.4; O2SAT 98
[2024-08-24] VITALS: BP 124/57; PULSE 72; RESP 16; TEMP 98.3
[2024-08-24 04:00] VITALS: BP 130/58; PULSE 66; RESP 16; TEMP 99.9
[2024-08-24 08:00] VITALS: BP 134/70; PULSE 79; RESP 18; TEMP 98.2; O2SAT 95
[2024-08-24 12:00] VITALS: BP 130/67; PULSE 79; RESP 18; TEMP 98
--- NOTE | 2024-08-24 16:00 | NUR ---
DISCHARGED patient given discharge instructions, educated on follow up visits, diet, activity, medications. patient going to facility, paperwork given to facility staff when they picked up the patient. answered pt and family questions, they understood.
== END 2024-08-24 15:52 | DRG 470 ==
LOC: DAH 08:21 → DAHIP 08:22 → OBSVTOIN 08:22 → DAH 08:22 → 4DH 16:52
PROVIDERS: ADMIT Orthopaedic Surgery; ATTEND Orthopaedic Surgery
PROC: 0SRC0J9 Replacement of Right Knee Joint with Synthetic Substitute, Cemented, Open Approach (ICD-10-PCS; principal; 2024-08-20 12:24)
DX: M17.11 Unilateral primary osteoarthritis, right knee (principal); D62 Acute posthemorrhagic anemia; Z68.42 Body mass index [BMI] 45.0-49.9, adult; E78.5 Hyperlipidemia, unspecified; E66.9 Obesity, unspecified; Z82.49 Family history of ischemic heart disease and other diseases of the circulatory system; Z83.3 Family history of diabetes mellitus; Z88.8 Allergy status to other drugs, medicaments and biological substances
CPT/HCPCS: 36415; 80048; 81001; 81025; 85025; 85027; 87086; 87641; C1776; G0378; J0330; J0690; J1885; J2175; J2250; J2405; J2704; J3010; J3370; J3490; J7120; A4213; A4215; A4216; A4221; A4222; A4223; A4600; A4649; A4663; A4930; A9272; C1713